=== PATIENT | male | born 1950 | race Caucasian/White ===

== ENCOUNTER 2017-04-19 06:00 | Observation (INO) | payer MEDICARE ==
[~2017-04-19 06:00] MED LIST: Buffered Lidocaine 0.9% SYRIN* 5 ML/SYR SYRINGE INTRADERM ONE; Metoclopramide TAB* 10 MG PO ONE; Sodium Citrate/Citric Acid* 15 ML UDC PO ONE
[2017-04-19] MEDS ORDERED: ceFAZolin 2 GM (*##) 2 GM/100 ML BAG USE CEFA2SOL IVPB ONE (06:07)
[2017-04-19] MEDS ORDERED: Buffered Lidocaine 0.9% SYRIN* 5 ML/SYR SYRINGE ONE (06:07)
[2017-04-19] MEDS ORDERED: Metoclopramide TAB* 10 MG ONE (06:07)
[2017-04-19] MEDS ORDERED: Sodium Citrate/Citric Acid* 15 ML UDC ONE (06:07)
[2017-04-19] MEDS ORDERED: ceFAZolin 2 GM in NS 0.9% 100 ml IVPB ONE (07:00)
[2017-04-19] MEDS ORDERED: Thrombin 5,000 UNITS* 1 APPLIC KIT - topical use - TOPICAL ONE (07:12)
[2017-04-19] MEDS ORDERED: Bacitracin IV* 50,000 UNITS INJ ONE (07:12)
[2017-04-19] MEDS ORDERED: Lidocaine 1% MPF wEPI 200,000* 30 ML SDV ONE (07:12)
[2017-04-19] MEDS ORDERED: fentaNYL* 50 MCG/ML 2 ML VIAL (100 MCG VIAL) ONE ×2 (07:33→09:20)
[2017-04-19] MEDS ORDERED: Ondansetron INJ* 2 MG/ML VIAL ONE (07:33)
[2017-04-19] MEDS ORDERED: Dexamethasone IV* 4 MG/ML 1 ML (4 MG) ONE (07:33)
[2017-04-19] MEDS ORDERED: Propofol* 10 MG/ML 20 ML BTL IV PUSH ONE (07:33)
[2017-04-19] MEDS ORDERED: Atracurium* 10 MG/ML 10 ML VIAL ONE (07:34)
[2017-04-19] MEDS ORDERED: Lidocaine 2% PF * 5 ML VIAL ONE (07:34)
[2017-04-19] MEDS ORDERED: DiMENhydriNATE IV* 50 MG/ML VIAL IV PUSH PRN (08:21)
[2017-04-19] MEDS ORDERED: Naloxone* 0.4 MG/ML 1 ML VIAL IV PRN (08:21)
[2017-04-19] MEDS ORDERED: HYDROmorphone INJ* 1 MG/ML CARPUJECT SYRINGE IV PRN (08:21)
[2017-04-19] MEDS ORDERED: oxyCODONE/Acetamin 5/325 MG* TAB PO PRN (08:21)
[2017-04-19] MEDS ORDERED: Acetaminophen TAB* 325 MG PO PRN ×2 (08:21→08:58)
[2017-04-19] MEDS ORDERED: EPHEDrine (Pressors)* 50 MG/ML VIAL ONE (08:55)
[2017-04-19] MEDS ORDERED: Magnesium Hydroxide LIQ* 30 ML UDC PO PRN (08:58)
[2017-04-19] MEDS ORDERED: Ondansetron INJ* 2 MG/ML VIAL IV PRN (08:58)
[2017-04-19] MEDS ORDERED: oxyCODONE/Acetamin 5/325 MG* TAB ONE (09:21)
[2017-04-19] MEDS: fentaNYL* 50 MCG/ML 2 ML VIAL (100 MCG VIAL) IV PRN ×2 (09:23→09:53)
[2017-04-19] MEDS ORDERED: DiMENhydriNATE IV* 50 MG/ML VIAL ONE (09:56)
--- NOTE | 2017-04-19 12:16 | RAD ---
INDICATION: Intraoperative surgery for neurogenic claudication TECHNIQUE: Intraoperative crosstable lateral image was acquired of the lumbar spine. FINDINGS: A lateral crosstable film of the lumbar spine shows a retractor and surgical device at the L5 level. IMPRESSION: As above
[2017-04-19] MEDS: HYDROcodone/ACETAMIN 5-325 MG* 1 TAB PO PRN (14:36)
[2017-04-20] MEDS: HYDROcodone/ACETAMIN 5-325 MG* 1 TAB PO PRN (01:57)
[2017-04-20] MEDS: Omeprazole CAP* 20 MG PO SCH (08:43)
[2017-04-20] MEDS: Atorvastatin* 20 MG TAB PO SCH (08:43)
--- NOTE | 2017-04-20 08:43 | PN ---
Progress Note - Progress Note Date of Service: 04/20/17 SOAP: Subjective: [S/p decompressive lumbar laminectomy L3-4 and L4-5, POD #1. Patient is feeling well this morning. Complains of mild low back soreness, controlled with PO pain meds. Pre-op lower extremity symptoms improved; ambulating well. Denies headache, nausea.] Objective: [Vital Signs: Temp Pulse Resp BP Pulse Ox 98.6 F 71 18 129/70 94 04/20/17 07:26 04/20/17 07:26 04/20/17 07:27 04/20/17 07:26 04/20/17 07:27 General: Alert and laying comfortably in bed. Neuro: Motor and sensory intact. Incision: Dressing intact. No swelling. Wound drain in place and functioning well. Extremities: Full ROM. Wound drain output 04/19/17 04/19/17 04/19/17 10:15 13:12 14:00 Output, POONAM #1 60 60 0 04/19/17 04/19/17 04/20/17 17:20 21:18 01:40 Output, POONAM #1 60 50 20 04/20/17 05:48 Output, POONAM #1 20 ] Assessment: [Satisfactory post-op course at this time. Wound drain continues to collect large volume of fluid and will therefore remain in place.] Plan: [1. Continue to monitor wound drain output. 2. Continue pain management. 3. Encourage ambulation. ]
--- NOTE | 2017-04-20 20:44 | OP ---
DATE OF OPERATION: 04/19/17 - ROOM #335 DATE OF : 48 SURGEON: Milton Nolan MD OVERNIGHT ASSOCIATE: HOLLY Joseph ANESTHESIOLOGIST: Celso Mcclure MD ANESTHESIA: General. PRE-OP DIAGNOSIS: Lumbar spinal stenosis, L3-4, L4-5. POST-OP DIAGNOSIS: Lumbar spinal stenosis, L3-4, L4-5. OPERATIVE PROCEDURE: Decompressive lumbar laminectomy, L3-4, L4-5. DESCRIPTION OF PROCEDURE: After satisfactory general anesthesia was obtained, the patient was placed on operating table in the prone position with the chest supported on the Ham frame and the back slightly flexed. The lumbar region was then clipped, prepped, and draped in a sterile manner for lumbar laminectomy and skin incision outlined from L3 to L5. This incision was infiltrated with 1% Xylocaine with epinephrine after which it was turned down sharply to the level of the lumbar fascia. The fascia was divided along the spinous processes from L3 to L5 and the paraspinal musculature stripped away from these posterior elements utilizing the periosteal elevator and monopolar cautery. An intraoperative x-ray was obtained verifying proper interspace localization after which a decompression was initially carried out by removing the spinous process of L4 and the superior aspect of spinous process of L5 with a combination of the Rickey rib shear and Leksell rongeurs. The decompression was then initially carried out at L4-5 by removing the inferior aspect of the L4 lamina and medial aspect of the facet complex using the combination of the Midas Cornelius drill and Kerrison rongeurs. The decompression was carried superiorly until the attachment of ligamentum flavum was taken down. The pathology at this level was a combination of ligamentous thickening as well as bony hypertrophy. The dissection was carried out laterally and inferiorly until a generous foraminotomy had been performed of both L5 nerve roots. Attention was then directed to the L3-4 level where the inferior aspect of the L3 spinous process was removed. The inferior aspect of the lamina of L3 as well as the medial aspect of the facet complex at this level was thinned out with the Midas Cornelius drill and the decompression carried out at this level. The decompression at this level was carried out laterally and inferiorly until generous foraminotomies had been performed of both L4 nerve roots. After assuring adequate hemostasis and wound was thoroughly irrigated, after which a drain was placed in the epidural space and tunneled out toward the left side. The fascia was then reapproximated with 0 Vicryl suture. The subcutaneous tissue was closed with 3-0 Vicryl suture and the skin closed with skin clips. The estimated blood loss was less than 50 cc and final sponge, padding, and needle counts were correct. The patient was taken to the recovery room, extubated, and in stable condition. [id number]/[facility] #: [id number] [facility] CENTERMele
[2017-04-21 07:44] VITALS: BP 144/82
--- NOTE | 2017-04-21 09:16 | PN ---
Progress Note - Progress Note Date of Service: 04/21/17 SOAP: Subjective: [S/p decompressive lumbar laminectomy L3-4 and L4-5. Patient feeling well this morning. Pre-op lower extremity symptoms resolved. Ambulating well independently. Pain well controlled with PO pain medications. Denies headache and nausea.] Objective: [ Vital Signs: Temp Pulse Resp BP Pulse Ox 97.7 F 60 18 144/82 95 04/21/17 07:31 04/21/17 07:31 04/21/17 08:00 04/21/17 07:31 04/21/17 07:31 General: Laying comfortably in bed. No distress. Neuro: Motor and sensory intact. Incision: Intact with shilo. No swelling. Wound drain discontinued today. Extremities: Full ROM. Wound drain output 04/19/17 04/19/17 04/19/17 10:15 13:12 14:00 Output, POONAM #1 60 60 0 04/19/17 04/19/17 04/20/17 17:20 21:18 01:40 Output, POONAM #1 60 50 20 04/20/17 04/20/17 04/20/17 05:48 09:37 13:48 Output, POONAM #1 20 20 10 04/20/17 04/20/17 04/21/17 18:00 21:12 01:44 Output, POONAM #1 12 15 10 04/21/17 05:05 Output, OPONAM #1 5 ] Assessment: [Satisfactory post-op course.] Plan: [1. Discharge home today. 2. Discharge instructions discussed.]
[2017-04-21] MEDS: Omeprazole CAP* 20 MG PO SCH (09:47)
[2017-04-21] MEDS: HYDROcodone/ACETAMIN 5-325 MG* 1 TAB PO PRN (09:47)
[2017-04-21] MEDS: Atorvastatin* 20 MG TAB PO SCH (09:47)
--- NOTE | 2017-04-22 10:37 | DS ---
DISCHARGE SUMMARY: DATE OF ADMISSION: 04/19/17 DATE OF DISCHARGE: 04/21/17 ATTENDING PHYSICIAN: Dr. Nolan.* (DICTATED BY HOLLY GRIMALDO) DISCHARGE DIAGNOSES: 1. Lumbar spinal stenosis, L3-4 and L4-5. 2. Gastroesophageal reflux disease. SPECIAL PROCEDURE: Decompressive lumbar laminectomy, L3-4 and L4-5. HOSPITAL COURSE: This is a 66-year-old male who was seen in office with symptomatic lumbar stenosis for the past several years. He failed to improve with conservative treatments and therefore was referred for neurosurgical evaluation. He decided to proceed with elective surgical treatment. On the day of admission, he was taken to Surgery where under general anesthesia, a decompressive lumbar laminectomy at L3-4 and L4-5 operation was carried out. Postoperatively, he was feeling well and lower extremity symptoms were resolved. He was ambulating independently. He was eating, drinking, and voiding without difficulty. On the first postoperative day, the wound drain continued to collect a large volume of fluid and was therefore left in place. He remained admitted for a second night. On the second postoperative day, the wound drain collection had significantly decreased and therefore the drain was discontinued. He was discharged home on this day to the care of his family. At this time, the lower extremity pain continued to be resolved and the low back soreness was minimal. DISCHARGE INSTRUCTIONS: Including wound care and activity level were discussed with patient and information on this was provided. DISCHARGE MEDICATION: Stafford 5/325 mg 1 to 2 tabs by mouth every 4 hours as needed for pain. FOLLOWUP: This patient will be seen in the office in approximately 10 days for followup and staple removal. HOLLY GRIMALDO [id number]/[facility] #: [id number] [facility]Me[facility]
== END 2017-04-21 10:58 | disposition home or self-care (01) ==
LOC: OR 06:00 → SSU 10:54
PROVIDERS: ADMIT Neurological Surgery; ATTEND Neurological Surgery
DX: M48.061 Spinal stenosis, lumbar region without neurogenic claudication (principal); K21.9 Gastro-esophageal reflux disease without esophagitis; M54.9 Dorsalgia, unspecified; M79.604 Pain in right leg; M54.31 Sciatica, right side; E78.00 Pure hypercholesterolemia, unspecified
CPT/HCPCS: 72100; 94760; A9270-GY; G0378; J0690; J1100; J1240; J2001; J2405; J2704; J3010

== ENCOUNTER 2020-09-18 05:58 | Observation (INO) ==
[2020-09-18] MEDS ORDERED: Lactated Ringers 1000 ml BAG 1,000 ML IV SCH (06:00)
[2020-09-18] MEDS ORDERED: Buffered Lidocaine 1% SYRIN 1 ml INTRADERM ONE (06:00)
[2020-09-18] MEDS ORDERED: Midazolam 2 mg/2 ml VIAL 1 mg/ml 2 ml VIAL (2 mg) ONE (07:06)
[2020-09-18] MEDS ORDERED: fentaNYL 100 mcg/2 ml 50 MCG/ML VIAL ONE ×3 (07:06→11:19)
[2020-09-18] MEDS ORDERED: ceFAZolin 2 GM in NS PREMIX 2 GM/100 ML BAG IVPB ONE (07:06)
[2020-09-18] MEDS ORDERED: Propofol 10 MG/ML 20 ML BTL ONE (07:08)
[2020-09-18] MEDS ORDERED: Bupivacaine 0.25% SDV 30 ML ONE ×2 (07:11→07:16)
[2020-09-18] MEDS ORDERED: Lidocaine 2% PF 10 ML AMP ONE (07:16)
[2020-09-18] MEDS ORDERED: Bupivacaine 0.5% SDV PF 30ML VIAL ONE (07:16)
[2020-09-18] MEDS ORDERED: Ondansetron 4 mg VIAL 2 MG/ML 2 ml VIAL ONE ×2 (08:36→11:38)
[2020-09-18] MEDS ORDERED: Dexamethasone IV 4 MG/ML VIAL 1 ml VIAL ONE (08:36)
[2020-09-18] MEDS ORDERED: oxyCODONE/Acetamin 5/325 mg TAB PO PRN (09:56)
[2020-09-18] MEDS: fentaNYL 100 mcg/2 ml 50 MCG/ML VIAL IV PRN ×3 (10:40→11:19)
[2020-09-18] MEDS ORDERED: oxyCODONE/Acetamin 5/325 mg TAB ONE (10:42)
[2020-09-18] MEDS ORDERED: Naloxone 0.4 mg VIAL 0.4 mg/ml 1 ml VIAL IV PRN (11:35)
[2020-09-18] MEDS ORDERED: DiMENhydriNATE IV 50 mg/ml 1 ml VIAL IV PUSH PRN (11:35)
[2020-09-18] MEDS ORDERED: Metoclopramide 5 MG/ML VIAL (10 mg) IV PRN (11:35)
[2020-09-18] MEDS ORDERED: Ondansetron 4 mg VIAL 2 MG/ML 2 ml VIAL IV PRN ×2 (11:35→15:26)
[2020-09-18] MEDS ORDERED: DiMENhydriNATE IV 50 mg/ml 1 ml VIAL ONE (11:38)
[2020-09-18] MEDS ORDERED: diPHENhydraMINE 25 mg TAB PO PRN (15:26)
[2020-09-18] MEDS ORDERED: Magnesium Hydroxide LIQ 30 ML UDC PO PRN (15:26)
[2020-09-18] MEDS ORDERED: diPHENhydraMINE IV 50 MG/ML 1 ml VIAL (BENADRYL) IV PRN (15:26)
[2020-09-18] MEDS ORDERED: Ondansetron ODT 4 mg TAB 4 MG TAB PO PRN (15:26)
[2020-09-18] MEDS ORDERED: Lactulose 30 ml UDC PO PRN (15:26)
[2020-09-18] MEDS ORDERED: Morphine 2 MG/ML SYRINGE IV PRN (15:32)
[2020-09-18] MEDS: ceFAZolin 1 GM ADVAN 1 GM in NS 0.9% 50 ML 50 ML IVPB SCH ×2 (17:41→23:20)
[2020-09-18] MEDS: Magnesium Hydroxide LIQ 30 ML UDC PO SCH (23:18)
[2020-09-19] MEDS: ceFAZolin 1 GM ADVAN 1 GM in NS 0.9% 50 ML 50 ML IVPB SCH (08:12)
[2020-09-19] MEDS ORDERED: Vitamin THERAPEUTIC TAB PO SCH (09:00)
[2020-09-19] MEDS: Magnesium Hydroxide LIQ 30 ML UDC PO SCH (09:45)
[2020-09-19 12:25] VITALS: BP 119/69
== END 2020-09-19 14:10 | disposition home or self-care (01) ==
LOC: SSU 05:58 → OR 05:58
PROVIDERS: ADMIT Orthopaedic Surgery; ATTEND Orthopaedic Surgery